=== PATIENT | female | born 1955 | race Caucasian/White ===

== ENCOUNTER 2017-08-29 09:12 | Emergency (ER) | payer MEDICAID ==
[~2017-08-29] VITALS: Ht 162.6 cm; Wt 67.0 kg
[2017-08-29] MEDS ORDERED: IBUP-2030 PO (09:34)
[2017-08-29] MEDS ORDERED: DICL50TA7 PO (09:34)
[2017-08-29 13:35] VITALS: BP 130/88
== END 2017-08-29 15:27 | disposition home or self-care (01) ==
LOC: ER 10:15
DX: S29.012A Strain of muscle and tendon of back wall of thorax, initial encounter (principal); M25.512 Pain in left shoulder; E78.00 Pure hypercholesterolemia, unspecified; X58.XXXA Exposure to other specified factors, initial encounter; Y93.89 Activity, other specified; Y92.89 Other specified places as the place of occurrence of the external cause; Y99.8 Other external cause status; Z98.890 Other specified postprocedural states
CPT/HCPCS: 72070; 99284

== ENCOUNTER 2022-02-21 16:53 | Emergency (ER) | payer MEDICARE, MEDICAID ==
[~2022-02-21] VITALS: Ht 154.9 cm; Wt 70.0 kg
[~2022-02-21 16:53] MED LIST: DICL50TA7 PO; IBUP-2030 PO
[2022-02-21 16:58] VITALS: BP 147/61
[2022-02-21 17:28] LABS: CLARITY URINE CLEAR (CLEAR); COLOR URINE YELLOW (YELLOW); KETONES URINE NEGATIVE (NEGATIVE); LEUKOCYTE ESTERASE URINE 1+ (NEGATIVE); NITRITE URINE NEGATIVE (NEGATIVE); OCCULT BLOOD URINE NEGATIVE (NEGATIVE); PH URINE 6.5 (4.5-8.0); PROTEIN URINE NEGATIVE (NEGATIVE); SPECIFIC GRAVITY URINE 1.006 (1.005-1.030); UROBILINOGEN URINE 0.2 E.U./dL (0.2-1.0)
[2022-02-21] MEDS ORDERED: NITR-87 MT (18:17)
[2022-02-21] MEDS: NITROFURANTOIN 100MG M/M CAPSULE PO NR ×2 (19:32→19:33)
== END 2022-02-21 19:58 | disposition home or self-care (01) ==
LOC: ER 16:54
DX: N39.0 Urinary tract infection, site not specified (principal); R30.0 Dysuria; E11.9 Type 2 diabetes mellitus without complications; E78.00 Pure hypercholesterolemia, unspecified
CPT/HCPCS: 81003; 82962; 99283